=== PATIENT | female | born 1980 | race African-American/Black ===

== ENCOUNTER 2019-10-12 18:18 | Emergency (ER) | payer BC ==
[~2019-10-12] VITALS: Ht 175.3 cm; Wt 100.0 kg
[2019-10-12 21:05] VITALS: BP 146/95
== END 2019-10-12 21:09 | disposition home or self-care (01) ==
LOC: ER 18:18
DX: S86.002A Unspecified injury of left Achilles tendon, initial encounter (principal); X58.XXXA Exposure to other specified factors, initial encounter
CPT/HCPCS: 99282

== ENCOUNTER 2021-02-23 09:04 | Observation (INO) | payer OTHER ==
[~2021-02-23] VITALS: Ht 175.3 cm; Wt 117.9 kg
[2021-02-23] MEDS ORDERED: METO-396 MT (09:41)
[2021-02-23] MEDS ORDERED: ASPI-864 MT (09:41)
== END 2021-02-23 11:30 | disposition home or self-care (01) ==
LOC: 8 EST LDRP 09:04 → 8 EST A/PP 09:40
PROVIDERS: ADMIT Obstetrics & Gynecology; ATTEND Obstetrics & Gynecology
DX: O09.522 Supervision of elderly multigravida, second trimester (principal); Z3A.24 24 weeks gestation of pregnancy
CPT/HCPCS: 59025; 76805; G0378; 99281